=== PATIENT | male | born 1965 | race Asian ===

== ENCOUNTER 2017-08-05 23:34 | Emergency (ER) | payer OTHER ==
[~2017-08-05] VITALS: Ht 160 cm; Wt 65.9 kg
[2017-08-06 01:45] VITALS: BP 166/84
== END 2017-08-06 01:56 | disposition home or self-care (01) ==
LOC: EMS 23:35
DX: S03.2XXA Dislocation of tooth, initial encounter (principal); I10 Essential (primary) hypertension; X58.XXXA Exposure to other specified factors, initial encounter; Y93.89 Activity, other specified; Y92.89 Other specified places as the place of occurrence of the external cause; Y99.8 Other external cause status
CPT/HCPCS: 99281